=== PATIENT | female | born 1965 | race Caucasian/White ===

== ENCOUNTER 2016-10-25 17:27 | Emergency (ER) | payer OTHER ==
[2016-10-25 17:45] VITALS: BP 148/110; PULSE 85; TEMP 97.7; BMI 24.4
[2016-10-25] MEDS ORDERED: morphine CARPU-JECT 4 MG/1 ML DISP.SYRIN IVPUSH ONE (18:32)
[2016-10-25 18:44] LABS: BASOPHIL 2.7 % (0-2.0); MCH 30.8 pg (25.7-33.7); MCHC 33.8 g/dl (32.0-36.0); MEAN CELL VOLUME 91.1 fl (80-96); MEAN PLT VOLUME 8.9 fl (7.5-11.1); NEUTROPHILS 54.5 % (42.8-82.8); PLATELET COUNT 234 K/MM3 (134-434); RDW 13.7 % (11.6-15.6); WHITE BLOOD COUNT 5.2 K/mm3 (4.0-10.0)
[2016-10-25] MEDS ORDERED: morphine CARPU-JECT 4 MG/1 ML DISP.SYRIN ONE (18:47)
[2016-10-25 18:54] LABS: INR 1.05 (0.82-1.09); PROTHROMBIN TIME (PATIENT) 11.6 SEC (9.98-11.88)
[2016-10-25 19:05] LABS: ANION GAP 8 (8-16); CALCIUM 8.9 mg/dL (8.5-10.1); CO2 29 mmol/L (21-32); CREATININE 0.6 mg/dL (0.55-1.02); GLUCOSE,RANDOM 79 mg/dL (74-106); SGOT/AST 18 U/L (15-37); SGPT/ALT 31 U/L (12-78)
--- NOTE | 2016-10-25 19:05 | PDOC ---
History of Present Illness - General History Source: Patient Exam Limitations: No Limitations - History of Present Illness Initial Comments: CHIEF COMPLAINT: 51 y/o afebrile with PMH HTN c/o lower abdominal pain and multiple episodes of bloody diarrhea today. HISTORY OF PRESENT ILLNESS: The patient states about 1 month ago she finished antibiotics for H. Pylori. Today she began having left lower abdominal pain and 16 episodes of bloody diarrhea. Vital signs on arrival are notable for BP of 148/110. REVIEW OF SYSTEMS: GENERAL/CONSTITUTIONAL: No fever/chills. No weakness. No weight change. HEAD, EYES, EARS, NOSE AND THROAT: No change in vision. No ear pain or discharge. No sore throat. CARDIOVASCULAR: No chest pain or shortness of breath. RESPIRATORY: No cough, wheezing, or hemoptysis. GASTROINTESTINAL: +left lower abdominal pain and multiple episodes of bloody diarrhea. GENITOURINARY: No dysuria, frequency, or change in urination. MUSCULOSKELETAL: No joint or muscle swelling or pain. No neck or back pain. SKIN: No rash or easy bruising. NEUROLOGIC: No headache, vertigo, loss of consciousness, or loss of sensation. PHYSICAL EXAM: GENERAL: The patient is awake, alert, and fully oriented, in no acute distress. She is well appearing, in NAD or obvious discomfort. HEAD: Normal with no signs of trauma. ENT: Pupils equal, round and reactive to light, extraocular movements intact, sclera anicteric, conjunctiva clear. Neck supple. LUNGS: Clear to auscultation bilaterally. Normal excursion. No respiratory distress or use of accessory muscles. CV: RRR, S1/S2, no MRG. Cap refill < 2 sec. ABDOMEN: Soft, non-distended, TTP of left lower quadrant and epigstric region. hyperactive BS LLQ. EXTREMITIES: Normal range of motion, no edema. NEUROLOGICAL: Normal speech, normal gait. CN II-XII grossly intact. PSYCH: Normal mood, normal affect. SKIN: Warm, dry, normal turgor, no rashes or lesions noted. <Myrtle Leigh - Last Filed: 10/25/16 18:29> <Alma Boland - Last Filed: 10/25/16 22:27> - General Chief Complaint: Pain Stated Complaint: ABD PAIN/RECTAL BLEEDING Time Seen by Provider: 10/25/16 18:09 Past History - Past Medical History Anemia: No Asthma: No Cancer: No Cardiac Disorders: No CVA: No COPD: No CHF: No Dementia: No Diabetes: No GI Disorders: No Disorders: No HTN: Yes Hypercholesterolemia: No Liver Disease: No Seizures: No Thyroid Disease: No Other medical history: H-pylori - Surgical History Cholecystectomy: Yes - Psycho/Social/Smoking Cessation Hx Suicidal Ideation: No Smoking History: Never smoked Have you smoked in the past 12 months: No Information on smoking cessation initiated: No Hx Alcohol Use: No Drug/Substance Use Hx: No Substance Use Type: None <Myrtle Leigh - Last Filed: 10/25/16 18:29> <Alma Boland - Last Filed: 10/25/16 22:27> - Past Medical History Allergies/Adverse Reactions: Allergies Allergy/AdvReac Type Severity Reaction Status Date / Time aspirin Allergy Verified 10/25/16 18:07 Sulfa (Sulfonamide Allergy Verified 10/25/16 18:07 Antibiotics) Home Medications: Ambulatory Orders Enalapril Maleate [Vasotec -] 10 mg PO DAILY 04/29/16 Metronidazole [Flagyl -] 500 mg PO BID #20 tablet 10/25/16 Ondansetron [Zofran Odt -] 4 mg SL Q6H PRN #20 od.tablet 10/25/16 Pantoprazole Sodium [Protonix -] 20 mg PO DAILY #30 tablet.ec 10/25/16 *Physical Exam - Vital Signs Last Vital Signs Temp Pulse Resp BP Pulse Ox 97.7 F 85 18 148/110 99 10/25/16 17:39 10/25/16 17:39 10/25/16 17:39 10/25/16 17:39 10/25/16 17:39 <Myrtle Leigh - Last Filed: 10/25/16 18:29> - Vital Signs Last Vital Signs Temp Pulse Resp BP Pulse Ox 97.7 F 85 18 148/110 99 10/25/16 17:39 10/25/16 17:39 10/25/16 17:39 10/25/16 17:39 10/25/16 17:39 <Alma Boland - Last Filed: 10/25/16 22:27> ED Treatment Course - RADIOLOGY Radiology Studies Ordered: Category Date Time Status ABDOMEN & PELVIS CT WITH CONTR [CT] Stat CT Scan 10/25/16 18:17 Ordered <LuMyrtle - Last Filed: 10/25/16 18:29> - LABORATORY CBC & Chemistry Diagram: 10/25/16 18:11 10/25/16 18:11 - ADDITIONAL ORDERS Additional order review: Laboratory Results 10/25/16 10/25/16 10/25/16 18:17 18:11 18:11 INR 1.05 Sodium Potassium Chloride Carbon Dioxide Anion Gap BUN Creatinine Creat Clearance w eGFR Random Glucose Calcium Total Bilirubin AST ALT Alkaline Phosphatase Total Protein Albumin Lipase Urine Color Colorless Urine Appearance Clear Urine pH 8.0 Ur Specific [place] 1.002 Urine Protein Negative Urine Glucose (UA) Negative Urine Ketones Negative Urine Blood Negative Urine Nitrite Negative Urine Bilirubin Negative Urine Urobilinogen Negative Ur Leukocyte Esterase Negative Stool Occult Blood Negative Blood Type Antibody Screen 10/25/16 10/25/16 18:11 18:11 INR Sodium 140 Potassium 3.8 Chloride 103 Carbon Dioxide 29 Anion Gap 8 BUN 14 Creatinine 0.6 Creat Clearance w eGFR > 60 Random Glucose 79 Calcium 8.9 Total Bilirubin 0.3 AST 18 ALT 31 Alkaline Phosphatase 103 Total Protein 7.5 Albumin 4.0 Lipase 249 Urine Color Urine Appearance Urine pH Ur Specific [place] Urine Protein Urine Glucose (UA) Urine Ketones Urine Blood Urine Nitrite Urine Bilirubin Urine Urobilinogen Ur Leukocyte Esterase Stool Occult Blood Blood Type O POSITIVE Antibody Screen Negative 10/25/16 18:11 RBC 4.49 MCV 91.1 MCHC 33.8 RDW 13.7 MPV 8.9 Neutrophils % 54.5 Lymphocytes % 24.9 Monocytes % 14.9 H Eosinophils % 3.0 Basophils % 2.7 H - Medications Given in the ED: ED Medications Discontinued Medications Generic Name Dose Route Start Last Admin Trade Name Freq PRN Reason Stop Dose Admin Pantoprazole Sodium 40 mg/ 100 mls @ 200 mls/hr 10/25/16 21:28 10/25/16 22:01 Sodium Chloride IVPB 10/25/16 21:57 200 mls/hr ONCE ONE Administration Famotidine/Sodium Chloride 50 mls @ 100 mls/hr 10/25/16 21:28 10/25/16 21:55 Pepcid 20 Mg Premixed Ivpb - IVPB 10/25/16 21:57 100 mls/hr ONCE ONE Administration Metronidazole 500 mg 10/25/16 21:48 10/25/16 21:55 Flagyl - PO 10/25/16 21:49 500 mg ONCE ONE Administration Morphine Sulfate 4 mg 10/25/16 18:32 10/25/16 18:48 Morphine Injection - IVPUSH 10/25/16 18:33 4 mg ONCE ONE Administration <Alma Boland - Last Filed: 10/25/16 22:27> Medical Decision Making - Medical Decision Making A/P: 51 y/o afebrile female with multiple episodes of bloody diarrhea and left lower abd pain today. Plan is as follows: 1. labs 2. UA/culture 3. IV fluids 4. IV morphine 5. CT scan/abd pelvis I am signing this patient out to my colleague: BLANCHE Boland In brief, this patient is being seen in the ED for a chief complaint of: left lower quadrant abd pain and bloody diarrhea I have completed the initial assessment interview note and have ordered: labs, UA, CT scan abd/pelvis I have reviewed the following results: labs Pending results are: UA, CT scan abd/pelvis Plan for disposition is as follows: Pending <Myrtle Leigh - Last Filed: 10/25/16 18:29> *DC/Admit/Observation/Transfer <Myrtle Leigh - Last Filed: 10/25/16 18:29> - Discharge Dispostion Admit: No <Alma Boland - Last Filed: 10/25/16 22:27> Diagnosis at time of Disposition: Gastroenteritis - Discharge Dispostion Disposition: HOME Condition at time of disposition: Improved - Prescriptions Prescriptions: Metronidazole [Flagyl -] 500 mg PO BID #20 tablet Pantoprazole Sodium [Protonix -] 20 mg PO DAILY #30 tablet.ec Ondansetron [Zofran Odt -] 4 mg SL Q6H PRN #20 od.tablet PRN Reason: Nausea - Referrals Referrals: Aman Frank [Primary Care Provider] - Angel Fowler MD [Staff Physician] - - Patient Instructions Printed Discharge Instructions: DI for Bacterial Gastroenteritis -- Adult Additional Instructions: Siga con el Dr. Fowler (Gastroenterologa) con respecto a antonina sntomas. Llame para programar daren beni. [place] los medicamentos segn lo prescrito. Regresar si los sntomas empeoran, o cualquier preocupacin por daren evaluacin adicional. Antonina anlisis de laboratorio y laboratorio fueron normales. 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 Flagyl- Antibiticos. Pepcid- bloqueador de histamina para el cido del estmago. Evite el alcohol, los alimentos picantes, los alimentos grasosos hasta que lo sj el especialista. Follow up with Dr. Fowler (Gastroenterology) regarding your symptoms. Call to schedule appointment. Take medications as prescribed. Return if symptoms worsen , or any concerns for further evaluation. Your labs and cat scan testing were normal. However, due to your recent infection within your stomach, I am going to extend your antibiotic therapy and have you follow up with a specialist. Flagyl- Antibiotics. Pepcid- Histamine thai for stomach acid. Avoid alcohol, spicy foods, greasy foods until seen by specialist. Print Language: KENYAN
[2016-10-25 19:06] LABS: ALK PHOS 103 U/L (45-117); BILIRUBIN,TOTAL 0.3 mg/dL (0.2-1.0); TOT PROT 7.5 g/dl (6.4-8.2)
[2016-10-25 19:13] LABS: URINE APPEARANCE CLEAR; URINE BILIRUBIN NEGATIVE (NEGATIVE); URINE BLOOD NEGATIVE (NEGATIVE); URINE COLOR COLORLESS; URINE GLUCOSE (UA) NEGATIVE (NEGATIVE); URINE KETONE NEGATIVE (NEGATIVE); URINE LEUK ESTERASE NEGATIVE (NEGATIVE); URINE NITRITE NEGATIVE (NEGATIVE); URINE PROTEIN NEGATIVE (NEGATIVE); URINE UROBILINOGEN NEGATIVE E.U./dl (0.2-1.0)
[2016-10-25] MEDS ORDERED: FAMOTIDINE 20 MG/50 ML IVPB 50 ML IVPB ONE ×2 (21:28→21:50)
[2016-10-25] MEDS ORDERED: PANTOPRAZOLE SODIUM 40 MG in SODIUM CHLORIDE 100 ML IVPB ONE (21:28)
[2016-10-25] MEDS ORDERED: metroNIDAZOLE 250 MG TABLET PO ONE (21:48)
[2016-10-25] MEDS ORDERED: metroNIDAZOLE 250 MG TABLET ONE (21:50)
[2016-10-25] MEDS ORDERED: PANTOPRAZOLE SODIUM 100 ML IVPB ONE (21:50)
== END 2016-10-25 22:36 | disposition home or self-care (01) ==
LOC: JER 17:27
PROC: 3E033GC Introduction of Other Therapeutic Substance into Peripheral Vein, Percutaneous Approach (ICD-10-PCS; principal; 2016-10-25)
PROC: 3E033GC Introduction of Other Therapeutic Substance into Peripheral Vein, Percutaneous Approach (ICD-10-PCS; 2016-10-25)
PROC: 3E033NZ Introduction of Analgesics, Hypnotics, Sedatives into Peripheral Vein, Percutaneous Approach (ICD-10-PCS; 2016-10-25)
DX: K52.9 Noninfective gastroenteritis and colitis, unspecified (principal)
CPT/HCPCS: 36415; 74177-TC; 80053; 81003; 82272; 83690; 85025; 85610; 86850; 86900; 86901; 96365; 96367; 96375; 99283-25; Q9967

== ENCOUNTER 2022-06-07 11:34 | Observation (INO) | payer OTHER ==
[2022-06-07] MEDS ORDERED: ACETAMINOPHEN INJECTION 100 ML IVPB ONE (12:23)
[2022-06-07] MEDS ORDERED: ACETAMINOPHEN 1000 MG/100 ML BAG IVPB ONE (12:55)
[2022-06-07 13:55] LABS: BASO % 0.6 % (0-2.0); EOS % 4.6 % (0-4.5); HEMATOCRIT 38.3 % (32.4-45.2); MCH 27.9 pg (25.7-33.7); MCHC 33.9 g/dl (32.0-36.0); MEAN CELL VOLUME 82.3 fl (80-96); MEAN PLT VOLUME 8.8 fl (7.5-11.1); MONO % 8.8 % (3.8-10.2); PLATELET COUNT 241 10^3/uL (134-434); RBC 4.66 M/mm3 (3.60-5.2); WHITE BLOOD COUNT 4.7 K/mm3 (4.0-10.0)
[2022-06-07 14:03] LABS: CALCIUM 9.3 mg/dL (8.5-10.1)
[2022-06-07 14:05] LABS: ALBUMIN 3.7 g/dl (3.4-5.0); BLOOD UREA NITROGEN 18.9 mg/dL (7-18)
[2022-06-07 14:08] LABS: BILIRUBIN,TOTAL 0.4 mg/dL (0.2-1); CREATININE 0.5 mg/dL (0.55-1.3); TOT PROT 6.8 g/dl (6.4-8.2)
[2022-06-07 14:43] LABS: PH,URINE 7.5 (5.0-8.0); URINE APPEARANCE TURBID; URINE BILIRUBIN NEGATIVE (NEGATIVE); URINE COLOR YELLOW; URINE GLUCOSE (UA) NEGATIVE (NEGATIVE); URINE KETONE NEGATIVE (NEGATIVE); URINE LEUK ESTERASE NEGATIVE (NEGATIVE); URINE NITRITE NEGATIVE (NEGATIVE); URINE PROTEIN NEGATIVE (NEGATIVE); URINE UROBILINOGEN 0.2 mg/dL (0.2-1.0)
[2022-06-07] MEDS: HEPARIN NA (PORCINE) 5,000 UNITS/ML 1ML VIAL SQ SCH (23:00)
[2022-06-08 07:21] LABS: BASO % 0.6 % (0-2.0); EOS % 7.2 % (0-4.5); HEMATOCRIT 41.2 % (32.4-45.2); HEMOGLOBIN 13.6 GM/dL (10.7-15.3); LYMPH % 35.9 % (8-40); MCH 27.3 pg (25.7-33.7); MCHC 33.1 g/dl (32.0-36.0); MEAN CELL VOLUME 82.4 fl (80-96); MEAN PLT VOLUME 8.7 fl (7.5-11.1); MONO % 10.6 % (3.8-10.2); NEUT % 45.7 % (42.8-82.8); PLATELET COUNT 257 10^3/uL (134-434); RBC 4.99 M/mm3 (3.60-5.2); RDW 14.2 % (11.6-15.6); WHITE BLOOD COUNT 4.7 K/mm3 (4.0-10.0)
[2022-06-08 07:45] LABS: ALBUMIN 3.7 g/dl (3.4-5.0); BLOOD UREA NITROGEN 18.8 mg/dL (7-18); CALCIUM 9.3 mg/dL (8.5-10.1)
[2022-06-08 07:47] LABS: CREATININE 0.5 mg/dL (0.55-1.3)
[2022-06-08 07:49] LABS: BILIRUBIN,TOTAL 0.3 mg/dL (0.2-1); TOT PROT 6.8 g/dl (6.4-8.2)
[2022-06-08] MEDS ORDERED: ENALAPRIL MALEATE 5 MG TABLET ONE (09:45)
[2022-06-08] MEDS ORDERED: HEPARIN NA (PORCINE) 5,000 UNITS/ML 1ML VIAL ONE (09:46)
[2022-06-08] MEDS ORDERED: PANTOPRAZOLE 20 MG TABLET PO ONE (09:46)
[2022-06-08] MEDS: PANTOPRAZOLE 20 MG TABLET PO SCH (09:53)
[2022-06-08] MEDS: HEPARIN NA (PORCINE) 5,000 UNITS/ML 1ML VIAL SQ SCH ×2 (09:53→21:49)
[2022-06-08] MEDS ORDERED: ENALAPRIL MALEATE 10 MG TABLET PO SCH (10:00)
[2022-06-08 17:28] VITALS: BMI 23.2
[2022-06-08] MEDS ORDERED: FLU VACC QS2022-23(6MOS UP)/PF 60 MCG/0.5 ML SYRINGE IM ONE (18:20)
[2022-06-08] MEDS: ACETAMINOPHEN 325 MG TABLET (FP) PO PRN (21:55)
[2022-06-08] MEDS ORDERED: ATORVASTATIN CA 80 MG TABLET (FP) PO SCH (22:00)
[2022-06-09 00:52] VITALS: RESP 20
[2022-06-09] MEDS: ACETAMINOPHEN 325 MG TABLET (FP) PO PRN (05:51)
[2022-06-09] MEDS: HEPARIN NA (PORCINE) 5,000 UNITS/ML 1ML VIAL SQ SCH (09:44)
[2022-06-09] MEDS: PANTOPRAZOLE 20 MG TABLET PO SCH (09:44)
[2022-06-09] MEDS ORDERED: LISINOPRIL 10 MG TABLET PO SCH (10:00)
[2022-06-09 11:34] VITALS: BP 121/43; PULSE 80; TEMP 98.3
== END 2022-06-09 14:41 | disposition home or self-care (01) ==
LOC: JER 11:34 → JERBED 13:10 → J4S 06-08 16:55
PROVIDERS: ADMIT Internal Medicine; ATTEND Internal Medicine
PROC: 3E033NZ Introduction of Analgesics, Hypnotics, Sedatives into Peripheral Vein, Percutaneous Approach (ICD-10-PCS; principal; 2022-06-07)
PROC: 3E023GC Introduction of Other Therapeutic Substance into Muscle, Percutaneous Approach (ICD-10-PCS; 2022-06-07)
PROC: 3E0234Z Introduction of Serum, Toxoid and Vaccine into Muscle, Percutaneous Approach (ICD-10-PCS; 2022-06-07)
DX: R55 Syncope and collapse (principal); I10 Essential (primary) hypertension; G43.909 Migraine, unspecified, not intractable, without status migrainosus; I87.2 Venous insufficiency (chronic) (peripheral); E05.90 Thyrotoxicosis, unspecified without thyrotoxic crisis or storm; Z88.8 Allergy status to other drugs, medicaments and biological substances; Z91.018 Allergy to other foods; Z88.2 Allergy status to sulfonamides; Z29.8 Encounter for other specified prophylactic measures
CPT/HCPCS: 0241U-QW; 36415; 70450-TC; 71045-TC-FY; 80053; 81003; 84436; 84443; 84484; 85025; 87086; 93005; 93010; 93880-TC; 99285-25; G0378; J1644; Q2036

== ENCOUNTER 2022-08-01 04:27 | Day surgery (SDC) | payer OTHER ==
[2022-07-30 11:54] VITALS: BMI 24.0
[2022-08-01 12:57] VITALS: BP 148/93; PULSE 64; RESP 15
[2022-08-01 15:23] VITALS: TEMP 98.6
== END 2022-08-01 13:55 | disposition home or self-care (01) ==
LOC: JASU-ENDO 04:27
PROVIDERS: ATTEND Internal Medicine Gastroenterology
PROC: 0DJD8ZZ Inspection of Lower Intestinal Tract, Via Natural or Artificial Opening Endoscopic (ICD-10-PCS; principal; 2022-08-01 12:45)
DX: Z12.11 Encounter for screening for malignant neoplasm of colon (principal)

== ENCOUNTER 2022-09-09 04:10 | Day surgery (SDC) | payer OTHER ==
[2022-09-04 16:55] VITALS: BMI 24.0
[2022-09-09 09:13] VITALS: RESP 18
[2022-09-09] MEDS ORDERED: MIDAZOLAM HCL 2 MG/2 ML SINGLE DOSE VIAL ONE (11:36)
[2022-09-09] MEDS ORDERED: ACETAMINOPHEN 325 MG TABLET (FP) ONE (13:05)
[2022-09-09] MEDS ORDERED: ACETAMINOPHEN 325 MG TABLET (FP) PO ONE (13:07)
[2022-09-09 15:37] VITALS: BP 138/79; PULSE 70; TEMP 98.3
== END 2022-09-09 15:00 | disposition home or self-care (01) ==
LOC: JASU-SURG 04:10
PROVIDERS: ATTEND Urology
PROC: 0TF3XZZ Fragmentation in Right Kidney Pelvis, External Approach (ICD-10-PCS; principal; 2022-09-09 10:30)
DX: N20.0 Calculus of kidney (principal)

== ENCOUNTER 2023-07-31 09:13 | Emergency (ER) | payer OTHER ==
[2023-07-31 09:23] VITALS: RESP 18; BMI 25.4
[2023-07-31] MEDS ORDERED: FAMOTIDINE 20 MG/50 ML IVPB 20 MG/50 ML MG IVPB ONE ×2 (11:32→11:51)
[2023-07-31] MEDS ORDERED: ACETAMINOPHEN 1000 MG/100 ML BAG IVPB ONE (11:32)
[2023-07-31] MEDS ORDERED: MAG HYDROX/AL HYDROX/SIMETH 30 ML UNIT-DOSE CUP PO ONE (11:32)
[2023-07-31] MEDS ORDERED: ACETAMINOPHEN INJECTION 100 ML IVPB ONE (11:50)
[2023-07-31] MEDS ORDERED: MAG HYDROX/AL HYDROX/SIMETH 30 ML UNIT-DOSE CUP ONE (11:51)
[2023-07-31 12:00] LABS: BASO % 0.9 % (0-2.0); EOS % 3.8 % (0-4.5); HEMATOCRIT 41.6 % (32.4-45.2); HEMOGLOBIN 13.7 GM/dL (10.7-15.3); LYMPH % 41.3 % (8-40); MCH 30.2 pg (25.7-33.7); MEAN CELL VOLUME 91.4 fl (80-96); MEAN PLT VOLUME 7.8 fl (7.5-11.1); MONO % 11.6 % (3.8-10.2); NEUT % 42.4 % (42.8-82.8); PLATELET COUNT 263 10^3/uL (134-434); RBC 4.55 M/mm3 (3.60-5.2); RDW 13.9 % (11.6-15.6); WHITE BLOOD COUNT 5.8 K/mm3 (4.0-10.0)
[2023-07-31 12:18] LABS: POTASSIUM 4.6 mmol/L (3.5-5.1)
[2023-07-31 12:23] LABS: ALBUMIN 3.9 g/dl (3.4-5.0); BLOOD UREA NITROGEN 14.9 mg/dL (7-18); CALCIUM 9.9 mg/dL (8.5-10.1); MAGNESIUM 2.3 mg/dL (1.8-2.4)
[2023-07-31 12:25] LABS: CREATININE 0.6 mg/dL (0.55-1.3)
[2023-07-31 12:28] LABS: BILIRUBIN,TOTAL 0.3 mg/dL (0.2-1); TOT PROT 7.2 g/dl (6.4-8.2)
[2023-07-31] MEDS ORDERED: LACTATED RINGERS SOLUTION 1000 ML INFUS.BAG IV ONE (12:40)
[2023-07-31 17:30] VITALS: BP 160/102; PULSE 82; TEMP 97.5
== END 2023-07-31 17:39 | disposition home or self-care (01) ==
LOC: JER 09:13
PROC: 3E033GC Introduction of Other Therapeutic Substance into Peripheral Vein, Percutaneous Approach (ICD-10-PCS; principal; 2023-07-31)
PROC: 3E033NZ Introduction of Analgesics, Hypnotics, Sedatives into Peripheral Vein, Percutaneous Approach (ICD-10-PCS; 2023-07-31)
DX: R10.13 Epigastric pain (principal)
CPT/HCPCS: 36415; 71046-TC-FY; 74177-TC; 80053; 83690; 83735; 84484; 85025; 93005; 93010; 99285-25; Q9967